=== PATIENT | male | born 1950 | race Caucasian/White ===

== ENCOUNTER 2016-09-13 14:16 | Outpatient (CLI) | payer OTHER ==
--- NOTE | 2016-09-15 09:11 | DEXA Report ---
DEXA: 09/13/2016 CLINICAL INDICATION: Steroid dependent asthma. TECHNIQUE: Dual energy x-ray absorptiometry (DXA) was performed on a [employer] system. Regions measured are the AP spine, femoral neck, and, if needed, forearm. COMPARISON: None. In accordance with the International Society for Clinical Densitometry (ISCD) guidelines, data from previous exams may be reanalyzed using current recommendations and techniques. This is done to allow a more accurate basis for comparison with the current study. FINDINGS: The data for the lumbar spine is as follows: REGION BMD (g/cm/cm) T-SCORE Z-SCORE L1 1.351 1.6 1.3 L2 1.434 1.6 1.4 L3 1.409 1.4 1.2 L4 1.284 0.4 0.1 TOTAL 1.367 1.2 1.0 NOTE: All evaluable vertebrae are used for classification. The data for the hip is as follows: REGION BMD (g/cm/cm) T-SCORE Z-SCORE Neck 0.973 -0.7 -0.1 TOTAL 1.059 -0.3 -0.1 NOTE: The femoral neck or total proximal femur, whichever is lowest, is used for classification. * Denotes significant change at the 95% confidence level. Denotes dissimilar scan types or analysis methods. IMPRESSION: THE WHO CLASSIFICATION BASED ON THE INTERNATIONAL REFERENCE STANDARD IS NORMAL. THE FRACTURE RISK IS NOT INCREASED. RECOMMENDATION: Patients with diagnosis of osteoporosis or osteopenia should have regular bone mineral density assessment. For those eligible for Medicare, routine testing is allowed once every 2 years. Testing frequency can be increased for patients who have rapidly progressing disease or for those who are receiving medical therapy to restore bone mass. COMMENT: World Health Organization (WHO) definitions for osteoporosis and osteopenia: NORMAL BMD: T-score at -1.0 or higher, fracture risk is low. OSTEOPENIA BMD: T-score between -1.0 and -2.5, fracture risk is increased. OSTEOPOROSIS BMD: T-score at -2.5 or lower, fracture risk high. National Osteoporosis Foundation recommends: 1. Obtain adequate dietary calcium (at least 1200 mg per day) and vitamin D (400 -800 international units per day). 2. Participate, as appropriate, in regular weightbearing and muscle- strengthening exercise. 3. Avoid tobacco use and reduce alcohol and caffeine intake. 4. For more detailed information see the website at www.NOF.org. MTDD
== END 2016-09-13 14:17 | disposition home or self-care (01) ==
LOC: DI 14:16
PROVIDERS: ATTEND Physician Assistant Medical
DX: Z13.820 Encounter for screening for osteoporosis (principal); Z78.9 Other specified health status; F19.20 Other psychoactive substance dependence, uncomplicated
CPT/HCPCS: 77080

== ENCOUNTER 2016-11-08 07:01 | Outpatient (CLI) | payer OTHER ==
[2016-11-08 10:42] LABS: BASOPHILS % (AUTO) 0.4 %; EOSINOPHILS # (AUTO) 0.3 10^3/uL (0.0-0.7); EOSINOPHILS % (AUTO) 3.7 %; HCT - HEMATOCRIT 46.2 % (42.0-52.0); HGB - HEMOGLOBIN 15.6 g/dL (14.0-18.0); LYMPHOCYTES % (AUTO) 12.2 %; MEAN CORPUSCULAR HEMOGLOBIN 34.8 pg (27.0-31.0); MEAN CORPUSCULAR HGB CONC 33.8 g/dL (32.0-36.0); MEAN CORPUSCULAR VOLUME 103.1 fL (80.0-94.0); MEAN PLATELET VOLUME 8.6 fL (7.4-11.4); MONOCYTES % (AUTO) 12.2 %; NEUTROPHILS # (AUTO) 5.6 10^3/uL (1.5-6.6); NEUTROPHILS % (AUTO) 71.5 %; RED BLOOD COUNT 4.48 10^6/uL (4.70-6.10); RED CELL DISTRIBUTION WIDTH 15.1 % (12.0-15.0); UNCORRECTED WHITE BLOOD COUNT 7.8 x10^3/uL; WHITE BLOOD COUNT 7.8 x10^3/uL (4.8-10.8)
[2016-11-08 11:00] LABS: ALBUMIN/GLOBULIN RATIO 1.9 (1.0-2.2); BILIRUBIN,TOTAL 1.8 mg/dL (0.2-1.0); BUN - BLOOD UREA NITROGEN 21 mg/dL (6-20); CALCIUM 9.6 mg/dL (8.5-10.3); CARBON DIOXIDE - CO2 32 mmol/L (21-32); CHLORIDE 93 mmol/L (101-111); CHOL/HDL RATIO 2.1 (<5.0); CHOLESTEROL 227 mg/dL; CREATININE 0.8 mg/dL (0.6-1.2); GFR - MDRD 96 (>89); GLUCOSE 115 mg/dL (70-100); HDL CHOLESTEROL 109 mg/dL; POTASSIUM 3.9 mmol/L (3.5-5.0); SODIUM 137 mmol/L (135-145); TRIGLYCERIDES 59 mg/dL; VLDL CHOLESTEROL 12 mg/dL
== END 2016-11-08 07:02 | disposition home or self-care (01) ==
LOC: LAB.F 07:01
PROVIDERS: ATTEND Physician Assistant Medical
DX: Z51.81 Encounter for therapeutic drug level monitoring (principal)
CPT/HCPCS: 36415; 80053; 80061; 84153; 85025

== ENCOUNTER 2016-11-13 09:06 | Outpatient (CLI) | payer OTHER ==
[2016-11-13 18:55] LABS: HEMOGLOBIN A1C 0.6 g/dL
== END 2016-11-13 09:07 | disposition home or self-care (01) ==
LOC: LAB.F 09:06
PROVIDERS: ATTEND Physician Assistant Medical
DX: E11.9 Type 2 diabetes mellitus without complications (principal)
CPT/HCPCS: 36415; 83036

== ENCOUNTER 2016-11-19 10:05 | Outpatient (CLI) | payer OTHER | END 2016-11-19 10:06 | disposition home or self-care (01) | LOC: SC 10:05 | PROVIDERS: ATTEND Nurse Practitioner Family | DX: G47.33 Obstructive sleep apnea (adult) (pediatric) (principal) | CPT/HCPCS: 99212; 99214 ==

== ENCOUNTER 2017-06-02 07:06 | Outpatient (CLI) | payer OTHER | END 2017-06-02 07:07 | disposition home or self-care (01) | LOC: LAB.F 07:06 | PROVIDERS: ATTEND Physician Assistant Medical | DX: E29.1 Testicular hypofunction (principal) | CPT/HCPCS: 36415; 81599; 84402; 84403 ==

== ENCOUNTER 2017-09-12 15:31 | Outpatient (CLI) | payer OTHER ==
--- NOTE | 2017-09-13 21:13 | XRAY Report ---
EXAM: LEFT WRIST RADIOGRAPHY. EXAM DATE: 09/12/2017 03:58 PM. CLINICAL HISTORY: Left wrist pain. COMPARISON: None. TECHNIQUE: 3 views. FINDINGS: Bones: No fracture or bone lesion is identified. Joints: There is widening of the scapholunate interval. There is abnormal volar tilt of the lunate ahsan ne and dorsal tilt of the capitate consistent with VISI deformity. Soft Tissues: Normal. No soft tissue swelling. 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 [facility] Referring Provider Line: [phone] SITE ID: [id number]
--- NOTE | 2017-09-13 21:20 | XRAY Report ---
EXAM: RIGHT FIRST DIGIT RADIOGRAPHY . EXAM DATE: 09/12/2017 04:02 PM. CLINICAL HISTORY: Right thumb pain. COMPARISON: None. TECHNIQUE: 3 views. FINDINGS: Bones: Normal. No fracture or bone lesion. Joints: Mild degenerative changes are seen primarily in the first metacarpophalangeal and to a lesser degree the first carpometacarpal joint. Soft Tissues: Normal. No soft tissue swelling. IMPRESSION: Minimal to mild degenerative changes seen in the first carpometacarpal and metacarpophala ngeal joints. [facility] Referring Provider Line: [phone] SITE ID: [id number]
== END 2017-09-12 15:32 | disposition home or self-care (01) ==
LOC: DI.S 15:31
PROVIDERS: ATTEND Physician Assistant Medical
DX: M25.332 Other instability, left wrist (principal); M25.532 Pain in left wrist; M79.644 Pain in right finger(s)
CPT/HCPCS: 73140

== ENCOUNTER 2017-11-20 07:07 | Outpatient (CLI) | payer OTHER ==
[2017-11-20 11:14] LABS: BASOPHILS % (AUTO) 0.6 %; EOSINOPHILS # (AUTO) 0.5 10^3/uL (0.0-0.7); EOSINOPHILS % (AUTO) 7.3 %; HGB - HEMOGLOBIN 15.2 g/dL (14.0-18.0); LYMPHOCYTES # (AUTO) 1.3 10^3/uL (1.5-3.5); LYMPHOCYTES % (AUTO) 19.6 %; MEAN CORPUSCULAR HEMOGLOBIN 35.1 pg (27.0-31.0); MEAN CORPUSCULAR HGB CONC 34.6 g/dL (32.0-36.0); MEAN CORPUSCULAR VOLUME 101.6 fL (80.0-94.0); MEAN PLATELET VOLUME 8.7 fL (7.4-11.4); MONOCYTES % (AUTO) 15.9 %; NEUTROPHILS # (AUTO) 3.7 10^3/uL (1.5-6.6); NEUTROPHILS % (AUTO) 56.6 %; PLT - PLATELET COUNT 188 10^3/uL (130-450); RED BLOOD COUNT 4.31 10^6/uL (4.70-6.10); RED CELL DISTRIBUTION WIDTH 14.9 % (12.0-15.0); WHITE BLOOD COUNT 6.5 x10^3/uL (4.8-10.8)
[2017-11-20 11:33] LABS: ALBUMIN 4.1 g/dL (3.2-5.5); ALBUMIN/GLOBULIN RATIO 1.6 (1.0-2.2); ALKALINE PHOSPHATASE 61 IU/L (42-121); ALT ALANINE AMINOTRANSFERASE 48 IU/L (10-60); AST ASPARTATE AMINOTRANSFERASE 41 IU/L (10-42); BILIRUBIN,TOTAL 1.2 mg/dL (0.2-1.0); BUN - BLOOD UREA NITROGEN 24 mg/dL (6-20); CALCIUM 9.4 mg/dL (8.5-10.3); CARBON DIOXIDE - CO2 30 mmol/L (21-32); CHLORIDE 98 mmol/L (101-111); CHOL/HDL RATIO 2.3 (<5.0); CHOLESTEROL 209 mg/dL; CREATININE 0.6 mg/dL (0.6-1.2); GFR - MDRD 134 (>89); GLUCOSE 114 mg/dL (70-100); HDL CHOLESTEROL 91 mg/dL; LDL CHOLESTEROL,CALCULATED 97 mg/dL; LDL/HDL RATIO 1.1 (<3.6); SODIUM 138 mmol/L (135-145); TOTAL PROTEIN 6.6 g/dL (6.7-8.2); VLDL CHOLESTEROL 21 mg/dL
[2017-11-20 11:48] LABS: HB2 TOTAL 16.6 g/dL; HEMOGLOBIN A1C 0.64 g/dL; HEMOGLOBIN A1C % 5.7 % (4.6-6.2)
== END 2017-11-20 07:08 | disposition home or self-care (01) ==
LOC: LAB.F 07:07
PROVIDERS: ATTEND Family Medicine
DX: E78.5 Hyperlipidemia, unspecified (principal); R53.83 Other fatigue; Z51.81 Encounter for therapeutic drug level monitoring; F19.20 Other psychoactive substance dependence, uncomplicated; I10 Essential (primary) hypertension; E11.9 Type 2 diabetes mellitus without complications
CPT/HCPCS: 36415; 80053; 80061; 83036; 83721; 84443; 85025

== ENCOUNTER 2018-06-01 07:31 | Outpatient (CLI) | payer OTHER ==
[2018-06-01 10:58] LABS: CREATININE,URINE 128.6 mg/dL
[2018-06-01 11:02] LABS: CALCIUM 8.9 mg/dL (8.5-10.3); CREATININE 0.7 mg/dL (0.6-1.2)
[2018-06-01 11:19] LABS: MICROALBUM/CREATININE RATIO,UR 39.7 ug/mg (<30.0); MICROALBUMIN,URINE 5.1 mg/dL (0-300.0)
[2018-06-01 11:26] LABS: HB2 TOTAL 16.6 g/dL; HEMOGLOBIN A1C 0.67 g/dL; HEMOGLOBIN A1C % 5.8 % (4.6-6.2)
== END 2018-06-01 07:32 | disposition home or self-care (01) ==
LOC: LAB.F 07:31
PROVIDERS: ATTEND Physician Assistant Medical
DX: E11.9 Type 2 diabetes mellitus without complications (principal)
CPT/HCPCS: 36415; 80048; 82043; 82570; 83036

== ENCOUNTER 2019-02-22 15:58 | Outpatient (CLI) | payer OTHER ==
[2019-02-22 17:57] VITALS: BP 96/60
--- NOTE | 2019-02-22 17:57 | SLEEP CARE CONSULTATION ---
Information from patient questionnaire entered by Veronica Grayson. I have reviewed and concur with the information entered by Veronica Grayson. This document represents the service I personally performed and the decisions made by me, Becky Starks, RN, MSN, DESULPHURING OPERATOR. History of Present Illness Previous diagnosis: Mild, Obstructive Sleep Apnea-Hypopnea Syndrome AHI: 9.8 Reason for follow up: annual (last seen 2017) Accompanied by: Spouse Equipment type: BiPAP Equipment obtained from: [facility] (having difficulty getting supplies despite repeated attempts and no supplies available when state are completed. Would like to transfer to [place]) Mask style: Nasal (wisp) Mask brand: Respironics Backup mask available: No Last cushion change: 6 weeks ago CPAP Compliance Data - Data Reviewed with Patient Average duration of nightly device use: 7.4 Compliance rate %: 91.7 (60 days) Current pressure setting (cmH2O): 13/9 Humidity settin Heated hose settin Average residual AHI: 0.9 Average large leak: 7 min 26 sec On Oxygen: Yes (2 liters per order ) Subjective Missed days of use due to: reports: illness Patient concerns: reports: air blowing in eyes (frequent ), mask leak noise (frequently ), nasal congestion (intermittent that sometimes interfers with BIPAP use ), dry mouth, nose, throat (severe mouth and throat daily. ). denies: aerophagia, mask discomfort, condensation in mask/hose, epistaxis Observed to snore while using device: Yes (rare) Current pressure setting perceived as: comfortable On therapy, patient: reports: sleeping better ( feels he sleep slightly better but patient feels sleep is disruptive due to things of mind ), more rested overall (slightly ) Initial [place] Sleepiness Scale score: 12 Current [place] Sleepiness Scale score: 9 Allergies and Home Medications Known drug allergies: Yes (aspirin latex ) Home medication list reviewed: Yes Allergy and home medication list: Montelukast 10mg daily methylprednisone 4 mg every other day metformin 500mg bid hydrochlorothiazide 25mg daily Losartin potassium 50mg daily tamsulosin 0.4mg daily asmanex 220mcg inhaler daily Trelegy disc inhaler 1 puff daily ipratropium a/ albuteraol 4mg prn ( 2-3 times daily ) ipratropium 15ml NS daily nebulizer fluticasone spray 1 spray daily clonazepam o.25mg daily sertaline 25mg daily Review of Systems Review of systems same as previous: No (carpal tunnel and ulnar nerve surgery soon , bilateral knee pain ) Physical Exam Blood Pressure: 96/60 Cuff size: long Heart Rate: 91 O2 Saturation: 96 Height: 6 ft 0.5 in Weight: 241 lb 12.8 oz Body Mass Index: 32.3 BMI Classification: Obesity Class 1 Impression and Plan 1. Obstructive Sleep Apnea-Hypopnea Syndrome, mild, with good treatment compliance and good apnea control. On BiPAP therapy, the patient has slightly better sleep quality and is slightly more rested overall. For oral dryness, I will have the humidity set to 3 in settings and then hose down to 1 to allow more moisture. If still dryness, then turn off heated hose so humidity is available from 0-5 to allow more moisture. In addition, I gave him a sample of saline nasal spray to use prior to BiPAP to clear nose of dried secretions and wash any allergens. He can also add a steamy shower to facilitate nasal drainage and wash off body allergens. The higher humidity can reduce nasal congestion. For his supply concerns, I will transfer him to [facility] , his choice and make a DWO prescription. I will also check to see if the oxygen can be transferred per patient request. At that time a mask refitting can be completed to reduce mask leaks.For mask leaks, a mask refitting for better fitting mask. Until then, he can use an eye cover to reduce leaks in eyes. He already uses eye drops. Patient's apnea severity and rationale for treatment to reduce apnea, improve sleep quality and reduce cardiovascular and cerebrovascular events was reviewed. I also reviewed the benefit of consistent device use of CPAP for hypertension, diabetes, depression/anxiety. 2. Insomnia, due to things on mind. I will have him complete a sleep diary. Until then he is advised to leave bedroom if unable to sleep and write out concerns as a release and then read relaxing material until sleepy before retur chuck to bed. 3. Hypoxia, using oxygen per BiPAP at 2 liters per minute. In order to transfer to a new company, a titration study would be needed to qualify as [facility] was in accreditation process at time of his set up . He will consider. Until then I will try to obtain an overnight pulse oximetry with his BiPAP and O2 to see if any changes in treatment needed. * Continue BiPAP pressure at 13/9 cmH2O * Adjust humidity and heated hose as discussed. * saline nasal spray as directed * mask refitting * Transfer to [facility] for CPAP supplies * overnight pulse oximetry with BiPAP and O2 at 2 liters - [facility] * Notify me if snoring with mask or feeling that the pressure is too much or too little * Attempt to lose weight * Return for follow up in 2 months, or sooner if concerns arise I spent 100% of this 35 minute visit face to face with the patient with greater than 50% of this was spent time counseling the patient and coordination of care.
== END 2019-02-22 15:59 | disposition home or self-care (01) ==
LOC: SC 15:58
PROVIDERS: ATTEND Nurse Practitioner Family
DX: G47.33 Obstructive sleep apnea (adult) (pediatric) (principal); G47.00 Insomnia, unspecified; R09.02 Hypoxemia; E66.9 Obesity, unspecified; Z68.32 Body mass index [BMI] 32.0-32.9, adult
CPT/HCPCS: 99212; 99214

== ENCOUNTER 2019-05-19 07:07 | Outpatient (CLI) | payer MEDICARE ==
[2019-05-19 10:34] LABS: CREATININE,URINE 173.2 mg/dL; MICROALBUM/CREATININE RATIO,UR 8.7 ug/mg (<30.0); MICROALBUMIN,URINE 1.5 mg/dL (0-300.0)
[2019-05-19 10:51] LABS: BASOPHILS % (AUTO) 0.2 %; HGB - HEMOGLOBIN 13.8 g/dL (14.0-18.0); LYMPHOCYTES # (AUTO) 1.5 10^3/uL (1.5-3.5); LYMPHOCYTES % (AUTO) 27.8 %; MEAN CORPUSCULAR HEMOGLOBIN 34.2 pg (27.0-31.0); MEAN CORPUSCULAR HGB CONC 33.3 g/dL (32.0-36.0); MEAN CORPUSCULAR VOLUME 102.5 fL (80.0-94.0); MEAN PLATELET VOLUME 10.5 fL (7.4-11.4); MONOCYTES # (AUTO) 0.9 10^3/uL (0.0-1.0); NEUTROPHILS % (AUTO) 55.8 %; PLT - PLATELET COUNT 236 10^3/uL (130-450); RED BLOOD COUNT 4.04 10^6/uL (4.70-6.10); RED CELL DISTRIBUTION WIDTH 12.9 % (12.0-15.0); WHITE BLOOD COUNT 5.4 x10^3/uL (4.8-10.8)
[2019-05-19 11:00] LABS: ALBUMIN 3.9 g/dL (3.2-5.5); ALBUMIN/GLOBULIN RATIO 1.6 (1.0-2.2); ALKALINE PHOSPHATASE 62 IU/L (42-121); ALT ALANINE AMINOTRANSFERASE 27 IU/L (10-60); AST ASPARTATE AMINOTRANSFERASE 32 IU/L (10-42); BUN - BLOOD UREA NITROGEN 11 mg/dL (6-20); CALCIUM 8.9 mg/dL (8.5-10.3); CARBON DIOXIDE - CO2 26 mmol/L (21-32); CHLORIDE 100 mmol/L (101-111); CHOL/HDL RATIO 2.4 (<5.0); CHOLESTEROL 186 mg/dL; CREATININE 0.8 mg/dL (0.6-1.2); GFR - MDRD 96 (>89); GLUCOSE 115 mg/dL (70-100); HDL CHOLESTEROL 77 mg/dL; LDL CHOLESTEROL,CALCULATED 94 mg/dL; LDL/HDL RATIO 1.2 (<3.6); SODIUM 137 mmol/L (135-145); TOTAL PROTEIN 6.3 g/dL (6.7-8.2); VLDL CHOLESTEROL 15 mg/dL
[2019-05-19 11:04] LABS: HB2 TOTAL 13.4 g/dL; HEMOGLOBIN A1C 0.58 g/dL; HEMOGLOBIN A1C % 6.1 % (4.6-6.2)
== END 2019-05-19 07:08 | disposition home or self-care (01) ==
LOC: LAB.S 07:07
PROVIDERS: ATTEND Physician Assistant Medical
DX: I10 Essential (primary) hypertension (principal); E78.5 Hyperlipidemia, unspecified; E11.9 Type 2 diabetes mellitus without complications; F19.20 Other psychoactive substance dependence, uncomplicated
CPT/HCPCS: 36415; 80053; 80061; 82043; 82570; 83036; 83721; 85025

== ENCOUNTER 2020-04-21 09:13 | Outpatient (CLI) | payer MEDICARE, BC ==
--- NOTE | 2020-04-21 10:08 | XRAY Report ---
PROCEDURE: Knee Standing BILAT INDICATIONS: BILATERAL KNEE PAIN TECHNIQUE: 4 views of the right knee, and for views of the left knee. COMPARISON: None. FINDINGS: Bones: No acute fractures or dislocations. Note is made of moderate medial compartment knee joint sp dwain narrowing, and near severe lateral compartment left knee joint space narrowing. No suspicious ahsan ny lesions. Joint spaces appear normal with weightbearing. Soft tissues: No knee joint effusions. No suspicious soft tissue calcification. IMPRESSION: No trauma found. Asymmetric left greater than right knee joint osteoarthritis with moderate knee join t space narrowing at each medial compartment but moderately severe such degenerative change at the la teral compartment of the left knee. Reviewed by: Yobani Walls MD on 04/21/2020 10:06 AM PST Approved by: Yobani Walls MD on 04/21/2020 10:06 AM PST Station ID: [id number]
== END 2020-04-21 23:59 | disposition home or self-care (01) ==
LOC: DI.N 09:13
PROVIDERS: ATTEND Orthopaedic Surgery
DX: M17.0 Bilateral primary osteoarthritis of knee (principal)

== ENCOUNTER 2020-04-21 16:41 | Outpatient (CLI) | payer MEDICARE, BC ==
--- NOTE | 2020-04-21 15:05 | SLEEP CARE CONSULTATION ---
Information from patient questionnaire entered by Veronica Grayson. I have reviewed and concur with the information entered by Veronica Grayson. This document represents the service I personally performed and the decisions made by me, Becky Starks, RN, MSN, EDUCATION TECHNICIAN. History of Present Illness Service Date and Time: 04/21/2020 1430 Previous diagnosis: Mild, Obstructive Sleep Apnea-Hypopnea Syndrome AHI: 9.8 (in 2015) Reason for follow up: three month (with pressure change) Equipment type: BiPAP Equipment obtained from: [facility] [employer] (in [place] / getting supplies as needed) Mask style: Nasal Backup mask available: Yes (old mask) Last cushion change: a few weeks Prior sleep studies: Yes Year and Where: 2014 - [facility] Sleep HPI additional information: Reviewed past visit note. The BiPAP pressure was ordered to be reduced for comfort. A mask refitting was ordered to control mask leaks. Methods to reduce Oral dryness were discussed. Patient never had a mask refitting nor was the pressure changed as ordered. CPAP Compliance Data - Data Reviewed with Patient Average duration of nightly device use: 7 hr 39 min Compliance rate %: 60 (no data after 01/14/20) Current pressure setting (cmH2O): 13/9 Humidity settin Average residual AHI: 1.0 Average large leak: 12 min 7 sec Subjective Patient concerns: reports: air blowing in eyes (2-3 times a week), dry mouth, nose, throat (dry mouth most nights ). denies: aerophagia, mask discomfort, mask leak noise (2- 3 times a week - ), condensation in mask/hose, nasal congestion, epistaxis Observed to snore while using device: No Current pressure setting perceived as: comfortable On therapy, patient: reports: sleeping better, awakening more refreshed, being more awake and alert during the day, more rested overall. denies: drowsiness while driving Initial [place] Sleepiness Scale score: 12 (in 2015) Allergies and Home Medications Known drug allergies: Yes (see list ) Home medication list reviewed: Yes (no changes) Review of Systems Review of systems same as previous: No Physical Exam Height: 6 ft 0.5 in Weight: 231 lb Body Mass Index: 30.9 BMI Classification: Obese Impression and Plan 1. Obstructive Sleep Apnea-Hypopnea Syndrome, mild, with fair treatment compliance and good apnea control. On BiPAP therapy, the patient has better sleep quality and is more rested overall. Compliance data stopped in January, it is unknown why - perhaps card inserted incorrectly or the old device is not fu nctioning correctly in data collection. He obtained the device in June 2014. The patients CPAP is over 5 years old and of reasonable use. In addition, it is starting to make louder noise, a sign of malfunction. Thus, the BiPAP will be updated. The new PAPs also have a better humidity system which could assist control of patients dryness symptoms. A DWO prescription will be made. Compliance guidelines for new device and follow up discussed. He is also using oxygen bled into his BiPAP at unknown liters per minute. It has started to make noise as well but no longer serviced by [facility]. I will check his past chart notes so this can be followed up properly. To reduce mask leaks into eyes, he is advised to change his mask cushion more frequently and to adjust headgear. If this does not work a mask refitting may be indicated. I also reviewed increasing humidity and using oral dryness products to reduce oral dryness until an new PAP can be obtained. Patient's apnea severity and rationale for treatment to reduce apnea, improve sleep quality and reduce cardiovascular and cerebrovascular events was reviewed. I also reviewed the benefit of consistent device use of CPAP for hypertension, diabetes, depression/anxiety. * Update Bipap at 13/9 cmH2O * Implement methods to reduce oral dryness and mask leaks. * Notify me if snoring with mask or feeling that the pressure is too much or too little * Attempt to lose weight * Call this office if any problems using CPAP * Return for follow up in 1 month after new BiPAP , or sooner if concerns arise Addendum: After patient visit, I reviewed his sleep studies and past follow up visits. He was started on oxygen at 2 liters after manual titration study indicated baseline oxygen 88% even with use of BIPAP and correction of apnea. His BIPAP and O2 were obtained from [facility]. At his 03/02 follow up, patient wanted to transfer to [facility] was was informed he would need a titration study to re qualify for oxygen but declined test. Evidently when he started O2 with [facility], they were not yet accredited for O2. [facility] is no longer dispensing PAPs or supplies and he transfered to [facility]. Thus, I will have patient follow up with Dr. Hawley after he obtains his new BiPAP to evaluate best option to continue oxygen therapy. When I discussed he needed a titration study to qualify for oxygen per recall of his history at his visit today but wanted to first check his records, he stated he did not want to repeat a sleep study due to cost. Visit Type: Telehealth Phone Patient Location: Home Location of Provider: Home Patient agrees and consents to this telehealth visit type: Yes Patient agrees to have their insurance billed: Yes Time Spent with Patient (minutes): 17 minutes with patient / 10 minutes for review of records Provider Statement: I spent 100% of the Telehealth Phone Call with the patient with greater than 50% spent counseling the patient and coordination of care.
--- OUTSIDE RECORDS SUMMARY | 2020-04-26 01:45 | EXTERNAL MEDICAL SUMMARY RPT | Continuity of Care Document ---
:1950 Demographics Phone Unavailable Preferred Language Icelandic Marital Status Unknown Mormon Affiliation Unknown Race Unknown Ethnic Group Unknown Author Organization [place] Address [address] [place] [address] Phone Care Team Providers Name Role Phone WILL Unavailable Unavailable PA-C Unavailable Unavailable Problems date description facility 2020-02-04 00:00:00 Little interest or pleasure in [facility] doing things? [facility] 2020-02-04 00:00:00 Feeling down, depressed, or [facility] hopeless? [facility] 2020-03-03 00:00:[facility], [facility] 2020-03-03 00:00:[facility] 2020-03-03 00:00:00 Peripheral [facility] 2020-03-03 00:00:00 Tobacco use and exposure [facility] 2020-03-03 00:00:00 [facility]oker [facility] 2020-03-03 00:00:00 Feeling down, depressed, or [facility] hopeless? [facility] 2020-03-03 00:00:00 Tobacco smoking status HIIS [facility] 2020-03-31 00:00:00 Tobacco use and exposure [facility] 2020-03-31 00:00:00 [facility] 2020-03-31 00:00:00 Feeling down, depressed, or [facility] hopeless? [facility] 2020-03-31 00:00:00 Tobacco smoking status HIIS [facility] 2020-04-21 00:00:00 Osteoarthrosis, localized, [facility] primary, involving lower leg [facility] 2020-04-21 00:00:00 KNEE 4 OR [facility] 2020-04-21 00:00[facility] 2020-04-21 00:00:[facility] 2020-04-21 00:00:00 Tobacco use and exposure [facility] 2020-04-21 00:00:00 Idiopathic osteoarthritis [facility] 2020-04-21 00:00:[facility] 2020-04-[facility]:00:00 [facility] 2020-04-21 00:00:00 How many standard drinks [facility] containing alcohol do you have [facility] on a typical day? 2020-04-21 00:00:00 How often do you have 6 or more [facility] drinks on 1 occasion? [facility] 2020-04-21 00:00:00 [facility] 2020-04-[facility]:00:00 Tobacco [facility] status [facility] 2020-04-21 00:00:00 [facility] Allergies date description facility SULFA (SULFONAMIDE ANTIBIOTICS) [facility] AC[facility]OLAMIDE [facility]OC[facility] MORPHINE [facility] PROPOX[facility]PHENE [facility] TRAZODONE [facility] HYDROCODONE-ACETAMINOPHEN [facility] PENICILLINS [facility] SULFA ANTIBIOTICS [facility] MORPHINE [facility] FEATHERS [facility] PREDNISONE [facility] CHOCOLATE FLAVOR [facility] ADHESIVE TAPE-SILICONES [facility] aspirin [facility] latex [facility] Medications date description facility 2020-02-04 00:00:00 null [facility] 2020-02-04 00:00:00 null [facility] 2020-03-03 00:00:00 null [facility] 2020-03-03 00:00:00 null [facility] 2020-03-03 00:00:00 null [facility] 2020-03-03 00:00:00 null [facility] 2020-03-03 00:00:00 MUPIROCIN [facility] 2020-03-03 00:00:00 SERTRALINE HCL [facility] 2020-03-03 00:00:00 MUPIROCIN [facility] 2020-03-03 00:00:00 SERTRALINE HCL [facility] Procedures date description facility 2020-04-21 00:00:00 Major Joint Injection [facility] date description facility 2020-04-21 00:00:00 KNEE 4 OR MORE VIEWS [facility] date description facility 2020-04-21 00:00:00 [facility] Social History date description facility 2020-03-03 00:00:00 Never smoker [facility] date description facility 2020-03-31 00:00:00 Never smoker [facility] date description facility 2020-04-21 00:00:00 Never smoker [facility] Social History date description facility 2020-03-03 00:00:00 Never smoker [facility] date description facility 2020-03-31 00:00:00 Never smoker [facility] date description facility 2020-04-21 00:00:00 Never smoker [facility] date description facility [id number]
== END 2020-04-21 16:42 | disposition home or self-care (01) ==
LOC: SC 16:41
PROVIDERS: ATTEND Nurse Practitioner Family
DX: G47.33 Obstructive sleep apnea (adult) (pediatric) (principal); R09.02 Hypoxemia; E66.9 Obesity, unspecified; Z68.30 Body mass index [BMI] 30.0-30.9, adult

== ENCOUNTER 2020-06-26 14:24 | Outpatient (CLI) | payer MEDICARE, BC ==
--- NOTE | 2020-06-26 16:45 | SLEEP CARE CONSULTATION ---
Information from patient questionnaire entered by Rito Pete. I have reviewed and concur with the information entered by Rito Pete. This document represents the service I personally performed and the decisions made by me, Ari Hawley MD, [facility]. History of Present Illness Service Date and Time: 06/26/2020 1424 Previous diagnosis: Mild, Obstructive Sleep Apnea-Hypopnea Syndrome AHI: 9.8 (in 2014) Reason for follow up: other (2-month followup with new bipap, need pulse ox test?) Equipment type: BiPAP Equipment obtained from: [facility] (in [place] / getting supplies as needed) Mask style: Nasal pillows Prior sleep studies: Yes Year and Where: 2014 - [facility] HPI additional information: HPI: Mr. Foster was diagnosed to have mild obstructive sleep apnea-hypopnea syndrome and returns today for follow up of BiPAP therapy. The patient recently acquired a new BiPAP from [facility] but has not been able to use it because an oxygen connector port did not come with it. He continues to use his old device nightly and all through the night. The compliance report shows that he uses the device 28 nights out of the past 30 nights, averaging 7 hours a night. He complains of no particular problem with the device such as soreness on the face, dry nose, epistaxis, nasal congestion or headache. He thinks that the pressure of 13/9 cmH2O is comfortable. On the BiPAP therapy he notices improvement in his sleep quality, and that he wakes up feeling fresher in the morning and more awake/alert during the day. His notices no snore at all. [place] Sleepiness Scale score is 10. The average residual AHI is 0.8; and average time in large leak per day is 5 minutes a night. CPAP Compliance Data - Data Reviewed with Patient Average duration of nightly device use: 7 h 5 min Compliance rate %: 83.3 Current pressure setting (cmH2O): 13/9 Humidity settin Average residual AHI: 0.8 Average large leak: 5 min 43 sec Subjective Missed days of use due to: reports: mask issues Patient concerns: reports: air blowing in eyes, mask leak noise, dry mouth, nose, throat Current pressure setting perceived as: comfortable Initial [place] Sleepiness Scale score: 12 (in 2014) Current [place] Sleepiness Scale score: 10 Allergies and Home Medications Drug allergies reviewed: Yes Home medication list reviewed: Yes Review of Systems Review of systems same as previous: Yes Physical Exam Height: 6 ft 0.5 in Weight: 231 lb Body Mass Index: 30.9 BMI Classification: Obese Impression and Plan IMPRESSION: 1. Obstructive Sleep Apnea-Hypopnea Syndrome, mild (AHI was 9.8), with the patient continuing to do well on the BiPAP therapy. I advised him to start using the new BiPAP to show compliance. The old oxygen connector should fit on the new hose. If not, he will have to order a new one from [place]. PLAN: 1. Start using his new BiPAP. 2. Try to lose weight 3. Return for follow up after one month of using the new BiPAP. Visit Type: In Office Time Spent with Patient (minutes): 15 Provider Statement: I spent 100% of the Face to Face Visit with the patient with greater than 50% spent counseling the patient and coordination of care.
== END 2020-06-26 14:25 | disposition home or self-care (01) ==
LOC: SC 14:24
PROVIDERS: ATTEND Internal Medicine Pulmonary Disease
DX: G47.33 Obstructive sleep apnea (adult) (pediatric) (principal); E66.9 Obesity, unspecified; Z68.30 Body mass index [BMI] 30.0-30.9, adult
CPT/HCPCS: 99212; G0463

== ENCOUNTER 2020-08-08 07:13 | Outpatient (CLI) | payer MEDICARE, BC ==
[2020-08-08 15:23] LABS: BASOPHILS % (AUTO) 0.7 %; EOSINOPHILS # (AUTO) 0.5 10^3/uL (0.0-0.7); EOSINOPHILS % (AUTO) 8.8 %; HCT - HEMATOCRIT 40.6 % (42.0-52.0); HGB - HEMOGLOBIN 13.1 g/dL (14.0-18.0); MEAN CORPUSCULAR HEMOGLOBIN 33.3 pg (27.0-31.0); MEAN CORPUSCULAR HGB CONC 32.3 g/dL (32.0-36.0); MEAN CORPUSCULAR VOLUME 103.3 fL (80.0-94.0); MEAN PLATELET VOLUME 10.4 fL (7.4-11.4); MONOCYTES # (AUTO) 0.6 10^3/uL (0.0-1.0); MONOCYTES % (AUTO) 10.5 %; NEUTROPHILS # (AUTO) 2.7 10^3/uL (1.5-6.6); NEUTROPHILS % (AUTO) 45.8 %; PLT - PLATELET COUNT 220 10^3/uL (130-450); RED BLOOD COUNT 3.93 10^6/uL (4.70-6.10); RED CELL DISTRIBUTION WIDTH 13.9 % (12.0-15.0); WHITE BLOOD COUNT 5.8 x10^3/uL (4.8-10.8)
[2020-08-08 15:43] LABS: CREATININE,URINE 99.1 mg/dL; MICROALBUMIN,URINE 0.3 mg/dL (0-300.0)
[2020-08-08 15:54] LABS: THYROID STIMULATING HORMONE 2.64 uIU/mL (0.34-5.60)
[2020-08-08 15:57] LABS: ALBUMIN 4.2 g/dL (3.2-5.5); ALBUMIN/GLOBULIN RATIO 1.7 (1.0-2.2); ALKALINE PHOSPHATASE 78 IU/L (42-121); ALT ALANINE AMINOTRANSFERASE 15 IU/L (10-60); AST ASPARTATE AMINOTRANSFERASE 19 IU/L (10-42); BILIRUBIN,TOTAL 0.8 mg/dL (0.2-1.0); BUN - BLOOD UREA NITROGEN 24 mg/dL (6-20); CALCIUM 9.2 mg/dL (8.5-10.3); CARBON DIOXIDE - CO2 28 mmol/L (21-32); CHLORIDE 102 mmol/L (101-111); CHOL/HDL RATIO 2.4 (<5.0); CHOLESTEROL 191 mg/dL; CREATININE 0.9 mg/dL (0.6-1.2); GFR - MDRD 83 (>89); GLUCOSE 107 mg/dL (70-100); HDL CHOLESTEROL 80 mg/dL; LDL CHOLESTEROL,CALCULATED 95 mg/dL; LDL/HDL RATIO 1.2 (<3.6); POTASSIUM 3.9 mmol/L (3.5-5.0); SODIUM 139 mmol/L (135-145); TOTAL PROTEIN 6.7 g/dL (6.7-8.2); TRIGLYCERIDES 81 mg/dL; VLDL CHOLESTEROL 16 mg/dL
[2020-08-08 20:05] LABS: ESTIMATED AVERAGE GLUCOSE 108 mg/dL (70-100); HEMOGLOBIN A1c% 5.4 % (4.27-6.07)
== END 2020-08-08 07:14 | disposition home or self-care (01) ==
LOC: LAB.S 07:13
PROVIDERS: ATTEND Physician Assistant
DX: E78.5 Hyperlipidemia, unspecified (principal); F51.04 Psychophysiologic insomnia; G47.33 Obstructive sleep apnea (adult) (pediatric); E11.9 Type 2 diabetes mellitus without complications; I10 Essential (primary) hypertension; F41.9 Anxiety disorder, unspecified; F32.9 Major depressive disorder, single episode, unspecified
CPT/HCPCS: 36415; 80053; 80061; 82043; 82306; 82570; 83036; 83721; 84443; 85025

== ENCOUNTER 2022-02-11 14:08 | Outpatient (CLI) | payer MEDICARE, BC ==
[2022-02-11 14:31] VITALS: BP 124/68
--- NOTE | 2022-02-11 14:31 | SLEEP CARE CONSULTATION ---
Information from patient questionnaire entered by Kostas Faria. I have reviewed and concur with the information entered by Kostas Faria. This document represents the service I personally performed and the decisions made by me, Ari Hawley MD, [facility]. History of Present Illness Service Date and Time: 02/11/2022 1408 Previous diagnosis: Mild, Obstructive Sleep Apnea-Hypopnea Syndrome AHI: 9.8 (in 2014) Reason for follow up: annual (LAST SEEN 06/2020) Equipment type: BiPAP (BIPAP PRO DREAM STATION) Equipment obtained from: [facility] (?) (in [place] / getting supplies as needed) Mask style: Nasal pillows Prior sleep studies: Yes Year and Where: 2014 - [facility] HPI additional information: Mr. Foster was diagnosed to have mild obstructive sleep apnea-hypopnea syndrome and returns today for follow up of BiPAP therapy. The patient recently acquired a replacement BiPAP from [employer] but has not been able to use it because it starts off on 4 cmH2O (the device was incorrectly set at the factory setting of EPAP = 4 and max IPAP = 25 with pressure support minimum of 2 cmH2O). He continues to use his old device nightly and all through the night. He has oxygen bled in at 2 L/minute. The compliance report shows that he uses the device 174 nights out of the past 180 nights, averaging 8 hours a night. He complains of no particular problem with the device such as soreness on the face, dry nose, epistaxis, nasal congestion or headache. He thinks that the pressure of 13/9 cmH2O is comfortable. On the BiPAP therapy he notices improvement in his sleep quality, and that he wakes up feeling fresher in the morning and more awake/alert during the day. His notices no snore at all. [place] Sleepiness Scale score is 4. The average residual AHI is 1.1; and average time in large leak per day is 52 minutes a night. Sleep Study - Results Prior sleep studies: Yes Year and Where: 2014 - [facility] CPAP Compliance Data - Data Reviewed with Patient Average duration of nightly device use: 11hrs, 25min, 28sec Compliance rate %: 100 (01/12/22-02/10/22) Current pressure setting (cmH2O): 9-13 Average residual AHI: 0.9 Subjective Initial [place] Sleepiness Scale score: 12 (in 2015) Allergies and Home Medications Drug allergies reviewed: Yes Home medication list reviewed: Yes Allergy and home medication list: Allergies aspirin Allergy (Verified 09/14/21 19:14) Unknown latex Allergy (Verified 09/14/21 19:14) Unknown Review of Systems Review of systems same as previous: Yes Physical Exam Vital signs obtained and entered by: KOSTAS Schultz MA Blood Pressure: 124/68 (left arm) Cuff size: regular Heart Rate: 52 O2 Saturation: 96 Height: 6 ft Weight: 247 lb 6.4 oz Body Mass Index: 33.5 BMI Classification: Obese Impression and Plan IMPRESSION: 1. Obstructive Sleep Apnea-Hypopnea Syndrome, mild (AHI was 9.8), with the patient continuing to do well on the BiPAP therapy + oxygen therapy. I reset his device to the fixed setting of 13/9 cmH2O. He has good compliance. I informed him that he should mail his old BiPAP back to the [facility]. PLAN: 1. Continue with BiPAP set at 13/9 cmH2O. No ramp. 2. Try to lose weight 3. Prescription made for supplies through [facility] (?). 4. Return for follow up in a year or earlier if there is any problem. Continue with device pressure at (cmH2O): 13/9 Prescriptions: Device supplies Follow up with Sleep Care in: 1 year Visit Type: In Office Other Participants: Spouse/Significant Other Time Spent with Patient (minutes): 15 Provider Statement: I spent 100% of the Face to Face Visit with the patient with greater than 50% spent counseling the patient and coordination of care.
== END 2022-02-11 14:09 | disposition home or self-care (01) ==
LOC: SC 14:08
PROVIDERS: ATTEND Internal Medicine Pulmonary Disease
DX: G47.33 Obstructive sleep apnea (adult) (pediatric) (principal); E66.9 Obesity, unspecified; Z68.33 Body mass index [BMI] 33.0-33.9, adult
CPT/HCPCS: 99212; G0463

== ENCOUNTER 2022-10-28 07:15 | Outpatient (CLI) | payer MEDICARE, BC ==
[2022-10-28 15:07] LABS: BASOPHILS # (AUTO) 0.1 10^3/uL (0.0-0.1); BASOPHILS % (AUTO) 0.7 %; EOSINOPHILS # (AUTO) 0.5 10^3/uL (0.0-0.7); EOSINOPHILS % (AUTO) 6.7 %; HCT - HEMATOCRIT 44.4 % (42.0-52.0); HGB - HEMOGLOBIN 14.8 g/dL (14.0-18.0); LYMPHOCYTES # (AUTO) 1.6 10^3/uL (1.5-3.5); LYMPHOCYTES % (AUTO) 23.7 %; MEAN CORPUSCULAR HEMOGLOBIN 33.6 pg (27.0-31.0); MEAN CORPUSCULAR HGB CONC 33.3 g/dL (32.0-36.0); MEAN CORPUSCULAR VOLUME 100.9 fL (80.0-94.0); MEAN PLATELET VOLUME 10.9 fL (7.4-11.4); MONOCYTES # (AUTO) 1.2 10^3/uL (0.0-1.0); NEUTROPHILS # (AUTO) 3.5 10^3/uL (1.5-6.6); NEUTROPHILS % (AUTO) 51.3 %; PLT - PLATELET COUNT 182 10^3/uL (130-450); RED CELL DISTRIBUTION WIDTH 13.4 % (12.0-15.0); WHITE BLOOD COUNT 6.8 x10^3/uL (4.8-10.8)
[2022-10-28 16:28] LABS: THYROID STIMULATING HORMONE 2.75 uIU/mL (0.34-5.60)
[2022-10-28 17:15] LABS: ALBUMIN 4.1 g/dL (3.2-5.5); ALBUMIN/GLOBULIN RATIO 1.5 (1.0-2.2); ALKALINE PHOSPHATASE 115 IU/L (42-121); ALT ALANINE AMINOTRANSFERASE 29 IU/L (10-60); AST ASPARTATE AMINOTRANSFERASE 36 IU/L (10-42); BILIRUBIN,TOTAL 1.2 mg/dL (0.2-1.0); BUN - BLOOD UREA NITROGEN 23 mg/dL (6-20); CALCIUM 9.3 mg/dL (8.5-10.3); CARBON DIOXIDE - CO2 29 mmol/L (21-32); CHLORIDE 101 mmol/L (101-111); CHOL/HDL RATIO 2.1 (<5.0); CHOLESTEROL 194 mg/dL; CREATININE 0.9 mg/dL (0.6-1.2); GFR - MDRD 83 (>89); GLUCOSE 132 mg/dL (70-100); HDL CHOLESTEROL 91 mg/dL; LDL CHOLESTEROL,CALCULATED 93 mg/dL; POTASSIUM 4.2 mmol/L (3.5-5.0); SODIUM 138 mmol/L (135-145); TOTAL PROTEIN 6.9 g/dL (6.7-8.2); TRIGLYCERIDES 48 mg/dL; VLDL CHOLESTEROL 10 mg/dL
[2022-10-28 20:30] LABS: ESTIMATED AVERAGE GLUCOSE 126 mg/dL (70-100)
== END 2022-10-28 07:16 | disposition home or self-care (01) ==
LOC: LAB.S 07:15
PROVIDERS: ATTEND Physician Assistant Medical
DX: I10 Essential (primary) hypertension (principal); I48.91 Unspecified atrial fibrillation; I42.9 Cardiomyopathy, unspecified; I25.10 Atherosclerotic heart disease of native coronary artery without angina pectoris; I25.84 Coronary atherosclerosis due to calcified coronary lesion; J45.50 Severe persistent asthma, uncomplicated; G47.33 Obstructive sleep apnea (adult) (pediatric); Z99.89 Dependence on other enabling machines and devices; E66.9 Obesity, unspecified; E11.9 Type 2 diabetes mellitus without complications
CPT/HCPCS: 36415; 80053; 80061; 83036; 83721; 84443; 84460; 85025